=== PATIENT | female | born 2000 | race African-American/Black ===

== ENCOUNTER 2023-01-19 07:16 | Emergency (ER) | payer SELFPAY ==
[2023-01-19] MEDS ORDERED: LORAZEPAM 1 MG TABLET ONE (08:07)
[2023-01-19 08:40] LABS: Absolute Lymphocytes (CBC) 1.3 K/uL (0.7-4.9); Hematocrit 17.4 % (36.0-45.0); Lymphocytes % 20.3 % (15.3-44.8); MCV 59.4 fL (80-100); Platelets 406 thou/uL (152-406); RBC Red Blood Cell Count 2.92 M/uL (3.86-4.86)
[2023-01-19 08:55] LABS: Potassium 3.8 mEq/L (3.5-5.1)
[2023-01-19 09:03] LABS: Specific Gravity 1.006 (1.005-1.030)
[2023-01-19 09:05] LABS: Specific Gravity 1.006 (1.005-1.030); Urine Bacteria <20 /HPF (<20); Urine Bilirubin NEGATIVE (Negative); Urine Blood Negative (Negative); Urine Clarity Extremely Turbid (Clear); Urine Color Colorless (Yellow); Urine Glucose NEGATIVE (Negative); Urine Protein NEGATIVE (Negative); Urine RBC 21-50 /HPF (None Seen); Urine Urobilinogen Normal (Normal); Urine pH 6.5 (5.0-7.0)
[2023-01-19 10:12] LABS: Anisocytosis 3+; Blood Morphology Comment NOTED (NOT SEEN); Platelet Estimate ADEQ; White Blood Cell Scan OK (OK)
[2023-01-19 10:13] LABS: Hypochromasia 3+
[2023-01-19] MEDS ORDERED: NA CHLORIDE 0.9% 250 ML ONE ×4 (10:31→18:03)
[2023-01-19] MEDS ORDERED: ONDANSETRON 4 MG/2 ML VIAL ONE (11:53)
--- NOTE | 2023-01-19 15:38 | ER ---
Nurse's Notes [facility] Name: Cindy Chaudhry Age: 22 yrs Sex: Female : 2000 Arrival Date: 01/19/2023 Time: 07:16 Bed 5 Private MD: Diagnosis: Anemia, unspecified Presentation: 01/19 07:30 Chief complaint: Patient states: Lower abdominal pain with nausea started today. ll1 Believes she's anemic again and feels sleepy. No fever. Coronavirus screen: Vaccine status: Patient reports being unvaccinated. Client denies travel out of the [place] in the last 14 days. fatigue, nausea, Client presents with at least one sign or symptom that may indicate coronavirus-19. Standard/surgical mask placed on the client. Ebola Screen: Patient denies travel to an Ebola-affected area in the 21 days before illness onset. Initial Sepsis Screen: Does the patient meet any 2 criteria? No. Patient's initial sepsis screen is negative. Does the patient have a suspected source of infection? Yes: Acute abdominal pain. Risk Assessment: Do you want to hurt yourself or someone else? Patient reports no desire to harm self or others. Onset of symptoms was January 19, 2023. 07:30 Method Of Arrival: Wheelchair ll1 07:30 Acuity: PHILOMENA 3 ll1 Triage Assessment: 07:31 General: Appears uncomfortable, ill, Behavior is calm, cooperative, appropriate for ll1 age. General: Reports fatigue for. Pain: Complains of pain in abdomen Pain currently is 10 out of 10 on a pain scale. Quality of pain is described as aching, crampy. GI: Reports lower abdominal pain, nausea. Historical: - Allergies: 07:30 No Known Allergies; ll1 - PMHx: 07:30 Anemia; ll1 - PSHx: 07:30 uterine bleeding SX; ll1 - Immunization history:: Adult Immunizations up to date. - Social history:: Smoking status: Patient denies any tobacco usage or history of. - Family history:: not pertinent. Screenin:37 [facility] ED Fall Risk Assessment (Adult) History of falling in the last 3 months, rs5 including since admission No falls in past 3 months (0 pts). [facility] ED Fall Risk Assessment (Adult) Confusion or Disorientation No (0 pts) Intoxicated or Sedated No (0 pts) Impaired Gait No (0 pts) Mobility Assist Device Used No (0 pt) Altered Elimination No (0 pt) Score/Fall Risk Level 0 - 2 = Low Risk Oriented to surroundings, Maintained a safe environment. Abuse screen: Denies threats or abuse. Nutritional screening: No deficits noted. Tuberculosis screening: No symptoms or risk factors identified. Assessment: 07:31 General: Appears in no apparent distress. uncomfortable, Behavior is calm, cooperative. rs5 Pain: Complains of pain in lower abdominal pain Pain does not radiate. Pain currently is 9 out of 10 on a pain scale. Quality of pain is described as aching. Neuro: Level of Consciousness is awake, alert, obeys commands, Oriented to person, place, time, situation. Cardiovascular: Heart tones S1 S2 present Rhythm is regular. Respiratory: Airway is patent Respiratory effort is even, unlabored, Respiratory pattern is regular, symmetrical, Breath sounds are clear bilaterally. GI: Bowel sounds present X 4 quads. Abd is soft and non tender X 4 quads. Reports lower abdominal pain, nausea, vomiting. : No signs and/or symptoms were reported regarding the genitourinary system. EENT: No signs and/or symptoms were reported regarding the EENT system. Derm: Skin is dry, Skin is normal, Skin temperature is warm. Musculoskeletal: Range of motion: intact in all extremities. 07:40 Reassessment: To bedside for blood draw. Pt states "I'm really really scared of rs5 needles." Pt asked to be medicated prior to blood draw, provider notified. 07:59 Reassessment: To bedside for rn medication, blanket provided per pt request. rs5 08:02 Reassessment: To bedside for IV insertion and blood draw. Pt tolerated procedure well. rs5 09:20 Reassessment: Consent form signed by Pt, and education over blood transfusion provided. ld1 09:20 Reassessment: Patient and/or family updated on plan of care and expected duration. Pain ld1 level reassessed. Patient is alert, oriented x 3, equal unlabored respirations, skin warm/dry/pink. 11:05 Reassessment: To bedside for blood adm. Blood product pierced with IV tubing when rs5 attempting to prime. Blood product returned and walked to blood bank. 11:38 Reassessment: Pt c/o nausea, notified. . aa5 11:40 Reassessment: To bedside for blood transfusion. rs5 11:55 Reassessment: RBC unit #1 started at 1140, started at 50cc/hr, now infusing at rs5 175mls/hr. No adverse reaction noted or reported, pt tolerating well. . 12:00 General: Appears in no apparent distress. comfortable, Behavior is calm, cooperative. rs5 Pain: Denies pain. 12:00 Cardiovascular: Heart tones S1 S2 present Rhythm is regular. Respiratory: Airway is rs5 patent Respiratory effort is even, unlabored, Respiratory pattern is regular, symmetrical. GI: Bowel sounds present X 4 quads. Abd is soft and non tender X 4 quads. 13:10 Reassessment: No changes from previously documented assessment. aa5 14:40 Reassessment: Blood transfusion complete. See transfusion record for vitals and aa5 transfusion information. 15:55 Reassessment: Awaiting 2nd unit of RBC, spoke to Galdino from lab and states unit should aa5 be ready soon. . 17:00 Reassessment: To bedside for blood transfusion. Blood checked with nurse ANDREW Moreno rs5 prior to blood transfusion. Blood component numbers did not match. Blood bank called and notified. Blood returned to Blood bank. 17:50 Reassessment: To bedside for blood transfusion. Blood checked with nurse ANDREW Moreno, rs5 prior to transfusion. Blood components numbers, and all other information matched.. 18:10 General: Appears in no apparent distress. comfortable, Behavior is calm, cooperative. rs5 Pain: Denies pain. Neuro: Level of Consciousness is awake, alert, obeys commands, Oriented to person, place, time, situation. Cardiovascular: Heart tones S1 S2 Rhythm is regular. Respiratory: Airway is patent Respiratory effort is even, unlabored, Respiratory pattern is regular, symmetrical, Breath sounds are clear bilaterally. GI: Bowel sounds present X 4 quads. Abd is soft and non tender X 4 quads. : No signs and/or symptoms were reported regarding the genitourinary system. EENT: No signs and/or symptoms were reported regarding the EENT system. Derm: Skin is dry, Skin is normal, Skin temperature is warm. Musculoskeletal: Range of motion: intact in all extremities. 18:10 Reassessment: RBC unit # 2 started at 1755, started at 50cc/hr, now infusing at rs5 200mls/hr. No adverse reaction noted or reported, see blood transfusion record for more info.. 19:00 Reassessment: Report given to cement car dumper nurse, RN. rs5 19:05 Reassessment: Patient and/or family updated on plan of care and expected duration. Pain ha1 level reassessed. Patient is alert, oriented x 3, equal unlabored respirations, skin warm/dry/pink. discharged pending blood transfusion Patient denies pain at this time. Patient states symptoms have improved. 19:51 Reassessment: Patient and/or family updated on plan of care and expected duration. Pain ha1 level reassessed. Patient is alert, oriented x 3, equal unlabored respirations, skin warm/dry/pink. Vital Signs: 07:30 Weight 52.16 kg; Height 5 ft. 2 in. ; Pain 10/10; ll1 07:31 BP 132 / 66; Pulse 97; Resp 17; Temp 98.8; Pulse Ox 98% on R/A; rs5 07:33 BP 118 / 70; Pulse 90; Resp 17; Temp 98.7(O); Pulse Ox 99% on R/A; rs5 08:36 BP 118 / 62; Pulse 81; Resp 17; Pulse Ox 98% on R/A; aa5 09:40 BP 120 / 64; Pulse 79; Resp 18; Pulse Ox 99% on R/A; aa5 10:45 BP 128 / 64; Pulse 80; Resp 17; Pulse Ox 99% on R/A; aa5 11:36 BP 128 / 75; Pulse 94; Resp 17; Pulse Ox 100% ; aa5 11:40 BP 125 / 69; Pulse 95; Resp 17; Temp 97.5; Pulse Ox 99% on R/A; aa5 11:45 BP 129 / 60; Pulse 81; Resp 17; Temp 97.5(O); Pulse Ox 100% ; aa5 11:50 BP 117 / 65; Pulse 94; Resp 18; Temp 97.5; Pulse Ox 99% on R/A; aa5 11:55 BP 125 / 61; Pulse 89; Resp 17; Temp 97.6; Pulse Ox 100% on R/A; aa5 13:10 BP 108 / 80; Pulse 77; Resp 18; Pulse Ox 99% on R/A; aa5 14:40 BP 121 / 68; Pulse 73; Resp 17; Temp 97.6(O); Pulse Ox 99% ; aa5 17:50 BP 126 / 76; Pulse 75; Resp 17; Temp 97.7; Pulse Ox 99% ; rs5 18:00 BP 127 / 74; Pulse 71; Resp 17; Temp 97.8(TE); Pulse Ox 99% on R/A; rs5 18:05 BP 127 / 74; Pulse 71; Resp 18; Temp 97.8(TE); Pulse Ox 100% on R/A; rs5 18:10 BP 121 / 74; Pulse 68; Resp 17; Temp 97.8(TE); Pulse Ox 99% on R/A; rs5 19:15 BP 128 / 73; Pulse 69; Resp 16 S; Temp 98.4(O); Pulse Ox 98% on R/A; ha1 19:30 BP 117 / 80; Pulse 73; Resp 17 S; Temp 98.4; Pulse Ox 99% on R/A; ha1 07:30 Body Mass Index 21.03 (52.16 kg, 157.48 cm) ll1 07:30 Pain Scale: Adult ll1 ED Course: 07:20 Patient arrived in ED. im 07:24 Ama Singh MD is Attending Physician. cp3 07:30 Arm band placed on Patient placed in an exam room, on a stretcher. ll1 07:31 Yasmany Arora, ANDREW is Primary Nurse. rs5 07:31 Triage completed. ll1 07:37 Patient has correct armband on for positive identification. Bed in low position. Call rs5 light in reach. Side rails up X2. 08:22 Inserted saline lock: 20 gauge in left antecubital area, using aseptic technique. Blood rs5 collected. 09:20 Provided Education on: Blood Transfusion. ld1 19:52 No provider procedures requiring assistance completed. IV discontinued, intact, ha1 bleeding controlled, No redness/swelling at site. Pressure dressing applied. Administered Medications: 07:56 Drug: LORazepam PO 1 mg PO once Route: PO; rs5 11:38 Drug: Ondansetron IVP 4 mg IVP once; over 2 minutes. VO received at 1138 Route: IVP; aa5 Site: left antecubital; 12:00 Follow up: Response: No adverse reaction rs5 Medication: 07:37 VIS not applicable for this client. rs5 Outcome: 15:38 Discharge ordered by . cp3 19:52 Discharged to home ambulatory, with family, ha1 19:52 Condition: stable 19:52 Discharge instructions given to patient, family, Instructed on discharge instructions, follow up and referral plans. medication usage, Demonstrated understanding of instructions, follow-up care, medications, Prescriptions given X 1, 19:53 Patient left the ED. ha1 Signatures: Ama Singh MD MD cp3 Ashley Rodriguez RN RN aa5 Patsy Stanford RN RN Latoya Dalal RN RN 1 Roxana Andre RN RN ld1 Ellen Mast RN RN ha1 Yasmany Arora RN RN rs5 Avani Real Corrections: (The following items were deleted from the chart) 12:12 07:40 Reassessment: To bedside for blood draw. Pt appears distress, uncomfortable, rs5 anxious. Pt reports "I am like really, really, scared of needles. Can you give me something for anxiety? Provider notified . rs5 15:25 11:33 BP 128 / 75; Pulse 94bpm; Resp 17bpm; Pulse Ox 100%; hb aa5 15:25 11:36 BP 125 / 69; Pulse 95bpm; Resp 17bpm; Pulse Ox 99% RA; Temp 97.5F; rs5 aa5 15:25 11:40 BP 129 / 60; Pulse 81bpm; Resp 17bpm; Pulse Ox 100%; Temp 97.5F Oral; rs5 aa5 15:25 11:45 BP 117 / 65; Pulse 94bpm; Resp 18bpm; Pulse Ox 99% RA; Temp 97.5F; rs5 aa5 15:25 11:50 BP 126 / 61; Pulse 89bpm; Resp 17bpm; Pulse Ox 100% RA; Temp 97.6F; rs5 aa5 15:29 14:40 Reassessment: Blood transfusion complete. rs5 aa5
--- NOTE | 2023-01-19 15:39 | EDPHYS ---
Physician Documentation [facility] Name: Cindy Chaudhry Age: 22 yrs Sex: Female : 2000 Arrival Date: 01/19/2023 Time: 07:16 Bed 5 Private MD: ED Physician Ama Singh HPI: 01/19 10:08 This 22 yrs old Black Female presents to ER via Wheelchair with complaints of Anemia. cp3 07:58 Patient is a 22-year-old female with a history of anemia who presents to the ED cp3 secondary to fatigue and generalized weakness secondary to what she feels like his anemia flare. Patient is currently untreated for anemia. Patient does not know if she has a history of iron deficiency. Patient has a history of heavy menstrual cycles. Patient denies chest pain, shortness of breath, fever, chills. Historical: - Allergies: 07:30 No Known Allergies; ll1 - PMHx: 07:30 Anemia; ll1 - PSHx: 07:30 uterine bleeding SX; ll1 - Immunization history:: Adult Immunizations up to date. - Social history:: Smoking status: Patient denies any tobacco usage or history of. - Family history:: not pertinent. ROS: 07:58 Eyes: Negative for injury, pain, redness, and discharge, ENT: Negative for injury, cp3 pain, and discharge, Neck: Negative for injury, pain, and swelling, Cardiovascular: Negative for chest pain, palpitations, and edema, Respiratory: Negative for shortness of breath, cough, wheezing, and pleuritic chest pain, Abdomen/GI: Negative for abdominal pain, nausea, vomiting, diarrhea, and constipation, Back: Negative for injury and pain, : Negative for injury, bleeding, discharge, and swelling, MS/Extremity: Negative for injury and deformity, Skin: Negative for injury, rash, and discoloration, Neuro: Negative for headache, weakness, numbness, tingling, and seizure, Psych: Negative for depression, anxiety, suicide ideation, homicidal ideation, and hallucinations, Allergy/Immunology: Negative for hives, rash, and allergies, Endocrine: Negative for neck swelling, polydipsia, polyuria, polyphagia, and marked weight changes, Hematologic/Lymphatic: Negative for swollen nodes, abnormal bleeding, and unusual bruising, 07:58 Constitutional: Positive for fatigue, malaise, Exam: 07:58 Constitutional: This is a well developed, well nourished patient who is awake, alert, cp3 and in no acute distress. Head/Face: Normocephalic, atraumatic. Eyes: Pupils equal round and reactive to light, extra-ocular motions intact. Lids and lashes normal. Conjunctiva and sclera are non-icteric and not injected. Cornea within normal limits. Periorbital areas with no swelling, redness, or edema. ENT: Nares patent. No nasal discharge, no septal abnormalities noted. Tympanic membranes are normal and external auditory canals are clear. Oropharynx with no redness, swelling, or masses, exudates, or evidence of obstruction, uvula midline. Mucous membranes moist. Neck: Trachea midline, no thyromegaly or masses palpated, and no cervical lymphadenopathy. Supple, full range of motion without nuchal rigidity, or vertebral point tenderness. No Meningismus. Chest/axilla: Normal chest wall appearance and motion. Nontender with no deformity. No lesions are appreciated. Cardiovascular: Regular rate and rhythm with a normal S1 and S2. No gallops, murmurs, or rubs. Normal PMI, no JVD. No pulse deficits. Respiratory: Lungs have equal breath sounds bilaterally, clear to auscultation and percussion. No rales, rhonchi or wheezes noted. No increased work of breathing, no retractions or nasal flaring. Abdomen/GI: Soft, non-tender, with normal bowel sounds. No distension or tympany. No guarding or rebound. No evidence of tenderness throughout. MS/ Extremity: Pulses equal, no cyanosis. Neurovascular intact. Full, normal range of motion. Neuro: Awake and alert, GCS 15, oriented to person, place, time, and situation. Cranial nerves II-XII grossly intact. Motor strength 5/5 in all extremities. Sensory grossly intact. Cerebellar exam normal. Normal gait. Psych: Awake, alert, with orientation to person, place and time. Behavior, mood, and affect are within normal limits. 07:58 Skin: Patient pale. Vital Signs: 07:30 Weight 52.16 kg; Height 5 ft. 2 in. ; Pain 10/10; ll1 07:31 BP 132 / 66; Pulse 97; Resp 17; Temp 98.8; Pulse Ox 98% on R/A; rs5 07:33 BP 118 / 70; Pulse 90; Resp 17; Temp 98.7(O); Pulse Ox 99% on R/A; rs5 08:36 BP 118 / 62; Pulse 81; Resp 17; Pulse Ox 98% on R/A; aa5 09:40 BP 120 / 64; Pulse 79; Resp 18; Pulse Ox 99% on R/A; aa5 10:45 BP 128 / 64; Pulse 80; Resp 17; Pulse Ox 99% on R/A; aa5 11:36 BP 128 / 75; Pulse 94; Resp 17; Pulse Ox 100% ; aa5 11:40 BP 125 / 69; Pulse 95; Resp 17; Temp 97.5; Pulse Ox 99% on R/A; aa5 11:45 BP 129 / 60; Pulse 81; Resp 17; Temp 97.5(O); Pulse Ox 100% ; aa5 11:50 BP 117 / 65; Pulse 94; Resp 18; Temp 97.5; Pulse Ox 99% on R/A; aa5 11:55 BP 125 / 61; Pulse 89; Resp 17; Temp 97.6; Pulse Ox 100% on R/A; aa5 13:10 BP 108 / 80; Pulse 77; Resp 18; Pulse Ox 99% on R/A; aa5 14:40 BP 121 / 68; Pulse 73; Resp 17; Temp 97.6(O); Pulse Ox 99% ; aa5 17:50 BP 126 / 76; Pulse 75; Resp 17; Temp 97.7; Pulse Ox 99% ; rs5 18:00 BP 127 / 74; Pulse 71; Resp 17; Temp 97.8(TE); Pulse Ox 99% on R/A; rs5 18:05 BP 127 / 74; Pulse 71; Resp 18; Temp 97.8(TE); Pulse Ox 100% on R/A; rs5 18:10 BP 121 / 74; Pulse 68; Resp 17; Temp 97.8(TE); Pulse Ox 99% on R/A; rs5 19:15 BP 128 / 73; Pulse 69; Resp 16 S; Temp 98.4(O); Pulse Ox 98% on R/A; ha1 19:30 BP 117 / 80; Pulse 73; Resp 17 S; Temp 98.4; Pulse Ox 99% on R/A; ha1 07:30 Body Mass Index 21.03 (52.16 kg, 157.48 cm) ll1 07:30 Pain Scale: Adult ll1 MDM: 07:25 Patient medically screened. cp3 07:58 Differential Diagnosis Iron deficiency anemia, generalized weakness, infection. Data cp3 reviewed: vital signs, nurses notes, lab test result(s). 10:06 Consideration of Admission/Observation Escalation of care including cp3 admission/observation considered. patient declined observation. I considered the following discharge prescriptions or medication management in the emergency department Medications were administered in the Emergency Department. See MAR. Historians other than the Patient: Spouse/Significant Other: at bedside. patient more weak and fatigued. Response to treatment: the patient's symptoms have markedly improved after treatment. ED course: 2 units prbc's ordered. 01/19 07:44 Order name: CBC with Diff; Complete Time: 11: [facility] 01/19 10:06 Interpretation: Abnormal: WBC 6.30; RBC 2.92; HGB 5.0; HCT 17.4; MCV 59.4; MCH 17.0; cp3 MCHC 28.6; PLT 406; RDW 19.2; MPV 8.0; GERMÁN% 69.9; LYM% 20.3; MN% 8.9; EOSINOPHIL % 0.3; BASO% 0.6; NEUT A 4.4; LYMA 1.3; MNA 0.6; EOSA 0.0; BASOA 0.0. 01/19 07:44 Order name: Basic Metabolic Panel; Complete Time: 09: [facility] 01/19 10:06 Interpretation: NA 140; K 3.8; CL 112; CO2 24; ANION GAP 7.8; GLUC 101; BUN 9; CRE cp3 0.85; GFR 101; CA 9.4. 01/19 07:44 Order name: Type And Screen [facility] 01/19 07:44 Order name: Urinalysis W/Microscopic; Complete Time: 09:11 3 01/19 10:06 Interpretation: [facility] Extremely Turbid; UESTR 500; UWBC >50; URBC 21-50. [facility] 01/19 07:44 Order name: Test, Urine; Complete Time: : [facility] 01/19 08:53 Order name: CBC Smear Scan; Complete Time: 11:11 EDMS 01/19 09:09 Order name: Urine Culture EDMS 01/19 09:33 Order name: ABO/RH no charge; Complete Time: 10:05 EDMS 01/19 09:36 Order name: Packed RBC Leukored EDMS 01/19 07:44 Order name: Saline Lock; Complete Time: 08:34 cp3 01/19 09:12 Order name: Consent for Blood Transfusion; Complete Time: 10:23 cp3 Administered Medications: 07:56 Drug: LORazepam PO 1 mg PO once Route: PO; rs5 11:38 Drug: Ondansetron IVP 4 mg IVP once; over 2 minutes. VO received at 1138 Route: IVP; aa5 Site: left antecubital; 12:00 Follow up: Response: No adverse reaction rs5 Disposition Summary: 01/19/23 15:38 Discharge Ordered Notes: Location: Home cp3 Condition: Stable cp3 Diagnosis - Anemia, unspecified cp3 Discharge Instructions: - Discharge Summary Sheet cp3 - Anemia cp3 Forms: - Medication Reconciliation Form cp3 - Thank You Letter cp3 - Antibiotic Education cp3 - Prescription Opioid Use cp3 - Patient Portal Instructions cp3 - Leadership Thank You Letter cp3 Prescriptions: - Ferrous Sulfate 325 mg (65 mg Iron) Oral Tablet - take 1 tablet ORAL route every 8 hours; 90 tablet; Refills: 0, Product cp3 Selection Permitted Critical care time excluding procedures: 10:07 Critical care time: Bedside Care: 15 minutes, Consultation: 15 minutes. Total time: 30 cp3 minutes Signatures: Dispatcher [employer] Ama Abdul MD MD cp3 Ashley Rodriguez RN RN aa5 Latoya Dalal RN RN ll1 Yasmany Arora RN RN rs5 Corrections: (The following items were deleted from the chart) 09:12 PACKED RBC LEUKORED+[id number].LAB.BRZ ordered. EDNM EDMS 09:15 ABO/RH typing ordered. EDNM EDMS 09:15 Antibody Screen ordered. EDMS EDMS
[2023-01-19 21:59] VITALS: TEMP 98.4
[2023-01-19 22:00] VITALS: BP 117/80; O2SAT 99
== END 2023-01-19 19:53 | disposition home or self-care (01) ==
LOC: ER 07:16
PROC: 30233N1 Transfusion of Nonautologous Red Blood Cells into Peripheral Vein, Percutaneous Approach (ICD-10-PCS; principal; 2023-01-19)
DX: D64.9 Anemia, unspecified (principal)
CPT/HCPCS: 36415; 80048; 81001; 81025; 85025; 86850; 86900; 86901; 86920; 87086; 87088; 96374; 99284; J2405; J7050; P9016